=== PATIENT | male | born 1950 | race Caucasian/White ===

== ENCOUNTER 2023-03-18 07:14 | Day surgery (SDC) | payer OTHER ==
[~2023-03-18] VITALS: Ht 167.6 cm; Wt 81.6 kg
[2023-03-18] MEDS ORDERED: MIDAZOLAM HCL 5 MG/5 ML VIAL ONE (07:40)
[2023-03-18] MEDS ORDERED: MEPERIDINE 100 MG INJ. 100 MG/ML VIAL ONE (07:40)
[2023-03-18] MEDS ORDERED: SIMETHICONE 40 MG/0.6 ML ML ONE (07:40)
[2023-03-18 08:10] VITALS: O2SAT 97
[2023-03-18 18:31] VITALS: BP_SYST 129; PULSE 80; RESP 14
== END 2023-03-18 11:14 | disposition home or self-care (01) ==
LOC: SDS 07:14 → SMU 07:17 → SDS 11:14
PROVIDERS: ATTEND Internal Medicine Gastroenterology
DX: Z12.11 Encounter for screening for malignant neoplasm of colon (principal); D12.2 Benign neoplasm of ascending colon; D12.3 Benign neoplasm of transverse colon; D12.4 Benign neoplasm of descending colon; D12.5 Benign neoplasm of sigmoid colon; D12.8 Benign neoplasm of rectum; K29.50 Unspecified chronic gastritis without bleeding; K21.9 Gastro-esophageal reflux disease without esophagitis; K44.9 Diaphragmatic hernia without obstruction or gangrene; K29.80 Duodenitis without bleeding; K64.8 Other hemorrhoids; Z86.010 Personal history of colon polyps; Z80.0 Family history of malignant neoplasm of digestive organs; E78.00 Pure hypercholesterolemia, unspecified; Z79.84 Long term (current) use of oral hypoglycemic drugs; Z79.899 Other long term (current) drug therapy
CPT/HCPCS: 45380; 45381; 45385; 43239; 99152; 87081; 36415; 82948; 88305; 88312; 88313; 99153; G0378; J2250; J2175